=== PATIENT | female | born 1975 | race Caucasian/White ===

== ENCOUNTER 2023-10-02 07:58 | Emergency (ER) | payer OTHER ==
[~2023-10-02] VITALS: Ht 162.6 cm; Wt 60.3 kg
[2023-10-02] MEDS ORDERED: METHOCARBAMOL500 MG (08:44)
[2023-10-02] MEDS ORDERED: TYLENOL325 MG (08:44)
[2023-10-02] MEDS ORDERED: WELLBUTRIN SR200 MG (08:45)
[2023-10-02] MEDS ORDERED: ADDERALL 10 MG10 MG (08:45)
[2023-10-02] MEDS ORDERED: TIAZAC180 MG (08:46)
== END 2023-10-02 09:23 | disposition home or self-care (01) ==
LOC: ER 07:58
DX: J06.9 Acute upper respiratory infection, unspecified (principal)